=== PATIENT | female | born 1980 | race Two or more races ===

== ENCOUNTER 2018-08-04 14:56 | Emergency (ER) | payer OTHER ==
[~2018-08-04] VITALS: Ht 157.5 cm; Wt 59.4 kg
[2018-08-04 14:58] VITALS: Ht 157.5 cm; Wt 59.4 kg
[2018-08-04 17:28] VITALS: BP 119/70
== END 2018-08-04 17:28 | disposition home or self-care (01) ==
LOC: ED 14:56
DX: O26.891 Other specified pregnancy related conditions, first trimester (principal); R51 Headache; K08.89 Other specified disorders of teeth and supporting structures; Z3A.11 11 weeks gestation of pregnancy
CPT/HCPCS: J2001